=== PATIENT | female | born 1955 | race Caucasian/White ===

== ENCOUNTER 2023-06-05 05:59 | Day surgery (SDC) | payer MEDICARE, BC ==
[2023-05-31 14:02] LABS: EOSINOPHILS # (AUTO) 0.2 X10'3 (0-0.9); LYMPHOCYTES # (AUTO) 1.9 X10'3 (1.1-4.8)
[2023-05-31 14:04] LABS: BASOPHILS # (AUTO) 0.1 X10'3 (0-0.2); BASOPHILS % (AUTO) 0.7 % (0-1); EOSINOPHILS % (AUTO) 2.4 % (0-6); LYMPHOCYTES % (AUTO) 21.6 % (21-51); MEAN CORPUSCULAR HEMOGLOBIN 31.1 PG (27.0-31.0); MEAN CORPUSCULAR HGB CONC 33.4 g/dL (33.0-36.5); MEAN CORPUSCULAR VOLUME 93.2 FL (78-98); MONOCYTES # (AUTO) 0.6 X10'3 (0-0.9); MONOCYTES % (AUTO) 6.3 % (2-12); NEUTROPHILS # (AUTO) 6.2 X10'3 (1.8-7.7); PRE OP HEMATOCRIT 45.1 % (35.0-45.0); PRE OP HEMOGLOBIN 15.1 g/dL (12.0-16.0); RED BLOOD COUNT 4.84 X10'6 (4.20-5.60)
[2023-05-31 14:05] LABS: BILIRUBIN,URINE NEGATIVE (Neg); CLARITY,URINE SLIGHTLY CLOUDY (Clear); COLOR,URINE YELLOW (Yellow); GLUCOSE, URINE NEGATIVE (Neg); KETONES,URINE NEGATIVE (Neg); LEUKOCYTE ESTERASE ,URINE NEGATIVE (Neg); NITRITES, URINE POSITIVE (Neg); OCCULT BLOOD,URINE TRACE-INTACT (Neg); PH,URINE 6.5 (4.8-8.0); PROTEIN,URINE NEGATIVE (Neg); UROBILINOGEN,URINE 0.2 E.U/dL (0.2-1.0)
[2023-05-31 14:11] LABS: UA COLLECTION TYPE CLN CATCH MIDSTREAM
[2023-05-31 14:12] LABS: BACTERIA,URINE 4+ /HPF (Neg); SQUAMOUS EPITHELIAL CELL,UR MANY /LPF (FEW)
[2023-05-31 14:14] LABS: ALBUMIN 3.4 G/DL (3.4-5.0); ALBUMIN/GLOBULIN RATIO 1.1 (1.1-1.5); ALKALINE PHOSPHATASE 63 IU/L (46-116); BLOOD UREA NITROGEN 13 MG/DL (7-18); BUN/CREATININE RATIO 12.6 (10.0-20.0); CAL OXALATE CRYSTALS 4+ /HPF (NEGATIVE); CALCIUM 8.9 MG/DL (8.5-10.1); CHLORIDE 108 MMOL/L (99-107); CREATININE 1.03 MG/DL (0.40-0.90); PRE OP ALT 15 U/L (30-65); PRE OP ANION GAP 8 (8-16); PRE OP AST 20 U/L (10-37); PRE OP BILIRUB, TOTAL 0.2 MG/DL (0.0-1.0); PRE OP GLUCOSE 89 MG/DL (70-104); PRE OP POTASSIUM 3.9 MMOL/L (3.4-5.1); PRE OP SODIUM 142 MMOL/L (135-145); TOTAL CARBON DIOXIDE 26.1 MMOL/L (24-32); TOTAL PROTEIN 6.4 G/DL (6.4-8.2); eGFR 54 ML/MIN
[2023-05-31 14:20] LABS: PRE OP PROTIME 9.7 SECONDS (9.0-12.0)
[2023-05-31 14:36] LABS: PRE OP INR 0.9 INR
[~2023-06-05] VITALS: Ht 177.8 cm; Wt 97.0 kg
[2023-06-05] VITALS (19 sets, daily range): BP systolic 97–119; BP diastolic 61–77; PULSE 61–108; RESP 10–25; TEMP 97.5; O2SAT 89–99
[~2023-06-05 05:59] MED LIST: ESTR1PAT93 TD; OXYTOCIN; PROG100C11 PO; TESTOSTERONE; cefazolin 2gm/D5W 100mL 100 ML IV ONE; famotidine 20mg tablet PO ONE; ringers solution, lacted 1,000 ML IV SCH
[2023-06-05] MEDS ORDERED: BUPIVAcaine/PF 2.5mg/ml (0.25%) 10ml vial ONE (07:37)
[2023-06-05] MEDS ORDERED: fentaNYL/PF 50MCG/1 ML 2ML syringe ONE ×2 (07:46→10:34)
[2023-06-05] MEDS ORDERED: dexamethasone sod phosphate 4mg/ml inj. ONE (07:48)
[2023-06-05] MEDS ORDERED: propofol inj 20 ML IV ONE (07:48)
[2023-06-05] MEDS ORDERED: LIDOcaine 2% (20mg/ml) 5ml vial ONE (07:48)
[2023-06-05] MEDS ORDERED: ROPIVAcaine 0.5% (5mg/ml) 30ml vial ONE ×2 (07:49)
[2023-06-05] MEDS ORDERED: ringers solution, lacted 1,000 ML IV SCH ×2 (07:55→09:20)
[2023-06-05] MEDS ORDERED: fentaNYL/PF 50MCG/1 ML 2ML syringe IV PRN ×2 (07:55)
[2023-06-05] MEDS ORDERED: morphine 2 MG/ML inj. syringe IV PRN (07:55)
[2023-06-05] MEDS ORDERED: labetalol 20mg/4ml (5mg/ml) syringe IV PRN (07:55)
[2023-06-05] MEDS ORDERED: ondansetron/PF 4mg/2ml inj IV PRN (07:55)
[2023-06-05] MEDS ORDERED: hydrALAZINE 20mg/ml inj. IV PRN (07:55)
[2023-06-05] MEDS ORDERED: desflurane 240ml liquid inh. IH ONE (08:07)
[2023-06-05] MEDS ORDERED: acetaminophen 1,000mg/100ml IV 100 ML IV ONE (08:45)
[2023-06-05] MEDS ORDERED: ondansetron/PF 4mg/2ml inj ONE (09:02)
[2023-06-05] MEDS ORDERED: ketorolac trometh. 30mg/ml inj. ONE (09:09)
[2023-06-05] MEDS ORDERED: proMETHazine 25mg rectal suppository RC PRN (09:20)
[2023-06-05] MEDS ORDERED: ROPIVAcaine 0.2% (10 MG/5 ML) BOLUS INJECTION POPLITEAL PRN (09:20)
[2023-06-05] MEDS ORDERED: ROPIVAcaine 0.2%/PF PUMP/bolus 545 ML POPLITEAL SCH (09:20)
[2023-06-05] MEDS ORDERED: bacitracin 15gm ointment TP ONE (10:17)
--- NOTE | 2023-06-05 11:07 | NUR ---
Received from OR via [facility] IN STABLE CONDITION , accompanied by MANAGER E LEARNING AND Anesthesiologist and report given by MANAGER E LEARNING AND Anesthesiolgist. Addendum: 06/05/23 at 1127 by Rosalva Cuello RN Amended: Links added.
[2023-06-05] MEDS: morphine 4 MG/ML inj SYRINge IV PRN ×2 (11:50→12:10)
[2023-06-05] MEDS: proCHLORperazine 10 MG/2 ml inj IV PRN ×2 (11:57→12:15)
[2023-06-05] MEDS ORDERED: oxyCODONE/APAP 10/325mg tablet PO STA (12:48)
--- NOTE | 2023-06-05 14:07 | NUR ---
PATIENT DISCHARGED FROM PACU IN STABLE CONDITION AFTER WRITTEN AND VEBAL DISCHARGE INSTRUCTIONS GIVEN. PATIENT AND GAVE VERBAL UNDERSTANDING OF INSTRUCTIONS. PATIENT LEFT FACILITY VIA WHEELCHAIR WITH RN. Addendum: 06/05/23 at 1453 by Rosalva Cuello RN Amended: Links added.
== END 2023-06-05 14:07 | disposition home or self-care (01) ==
LOC: PAS 05:59
PROVIDERS: ATTEND Podiatrist Foot & Ankle Surgery
DX: M67.874 Other specified disorders of tendon, left ankle and foot (principal); M21.6X2 Other acquired deformities of left foot; E66.9 Obesity, unspecified; Z68.30 Body mass index [BMI] 30.0-30.9, adult; F41.9 Anxiety disorder, unspecified; G89.18 Other acute postprocedural pain; Z98.51 Tubal ligation status; Z98.890 Other specified postprocedural states; Z87.442 Personal history of urinary calculi; Z91.013 Allergy to seafood; Z88.2 Allergy status to sulfonamides; Z86.718 Personal history of other venous thrombosis and embolism; Z79.899 Other long term (current) drug therapy; Z79.01 Long term (current) use of anticoagulants
CPT/HCPCS: 27691; 28300; 64446; 64447; 71046; 73650; 80053; 81001; 82948; 85025; 85610; 85730; 93005; A6222; C1713; J0131; J0690; J0780; J1100; J1885; J2270; J2405; J2704; J2795; J3010; J3490; J7030; J7120; Z7506; Z7508; Z7512; 76000; A4615; A4618; A6253; A6446; A6449; A7000; C1769